=== PATIENT | female | born 1970 | race Caucasian/White ===

== ENCOUNTER 2017-06-22 11:53 | Outpatient (CLI) | payer OTHER ==
[2017-06-22 13:25] LABS: Hemoglobin 13.2 g/dL (12.0-16.0); Mean Corpuscular HGB CONC 34.2 g/dL (32.0-36.0); Mean Corpuscular Hemoglobin 34.2 pg (27.0-31.0); Mean Platelet Volume 7.9 fL (7.4-10.4); Platelet Count 209 thou/uL (130-400); RBC Distribution Width 10.5 % (11.5-14.5); Red Blood Cell (RBC) Count 3.85 mill/uL (4.20-5.40); White Blood Cell (WBC) Count 5.2 thou/uL (4.8-10.8)
== END 2017-06-22 11:54 | disposition home or self-care (01) ==
LOC: LABBT 11:53
PROVIDERS: ATTEND Student in an Organized Health Care Education/Training Program
DX: Z01.812 Encounter for preprocedural laboratory examination (principal); N92.1 Excessive and frequent menstruation with irregular cycle
CPT/HCPCS: 85027; 86850; 86900; 86901

== ENCOUNTER 2017-06-25 05:56 | Day surgery (SDC) | payer OTHER ==
[2017-06-22 12:21] VITALS: BMI 20.9
--- NOTE | 2017-06-25 01:02 | HP ---
DATE OF OPERATION: 06/25/2017 PREOPERATIVE DIAGNOSIS: Menometrorrhagia HISTORY OF PRESENT ILLNESS: This is a 47-year-old G0, presented with complaints of bleeding x3 weeks in duration. She also reported a history over the last several years. That occurred every 2 weeks and states the bleeding is extremely heavy and having increasing pain and the patient herself has nev er been sexually active and there is possibly a history in her mother, uterine cancer. The patient w as unable to be biopsied in the office secondary to patient discomfort. CURRENT MEDICATIONS: Aleve q. 12 hours p.r.n., Claritin 10 mg p.o. daily. PAST MEDICAL HISTORY: Denies. PAST SURGICAL HISTORY: Denies. OBSTETRIC HISTORY: G0. GYNECOLOGIC HISTORY: No abnormal Paps, no STDs. SOCIAL HISTORY: Negative x3. ALLERGIES: No known drug allergies. FAMILY HISTORY: Uterine cancer in her mother, prostate cancer in her father, breast cancer in her mo ther as well. PHYSICAL EXAMINATION: VITAL SIGNS: Blood pressure 120/78, pulse 70, respirations 18, weight 142, BMI of 21. GENERAL: No acute distress. CARDIAC: Regular rate and rhythm. LUNGS: Clear to auscultation bilaterally. ABDOMEN: Soft, nontender, nondistended. EXTREMITIES: No edema, cyanosis, or clubbing. PELVIC: Deferred to the OR. ASSESSMENT AND PLAN: This is a 47-year-old G0 with menometrorrhagia and family history of uterine ca ncer unable to be biopsied in the office. Disposition for in OR, hysteroscopy, D&C for further evalu ation of the uterine cavity. Ultrasound in May shows, uterus measuring 7.45 x 3.31 with a clinical athletic instructor ior fibroid measuring 2.18 x 3.21. Endometrium of 4 mm to the right and left ovary were normal. No free fluid was noted. Patient was discussed risk of surgery, which includes bleeding, infection, nanda rine perforation, damage to surrounding structure. The patient voiced understanding and wished to pr oceed. We will follow up with me in 2 weeks postoperative time.
[2017-06-25] MEDS ORDERED: Midazolam HCl 2 mg/2 ml Vial ONE (07:03)
[2017-06-25] MEDS ORDERED: Fentanyl 100 MCG/2 ML VIAL ONE (07:03)
[2017-06-25] MEDS ORDERED: Promethazine HCl 25 MG/ML VIAL ONE (07:19)
[2017-06-25] MEDS ORDERED: Scopolamine 1.5 mg/72 hour Patch ONE (07:19)
--- NOTE | 2017-06-25 08:45 | OP ---
DATE OF PROCEDURE: 06/25/2017 PREOPERATIVE DIAGNOSIS: Menometrorrhagia. POSTOPERATIVE DIAGNOSIS: Menometrorrhagia. PROCEDURE: Hysteroscopy, dilation and curettage. ATTENDING SURGEON: Anne Mobley M.D. HEAVY EQUIPMENT ENGINE MECHANIC: None. ANESTHESIA: General LMA. ESTIMATED BLOOD LOSS: 10 mL URINE OUTPUT: 50 mL, straight catheterization at the beginning. COMPLICATIONS: None. DRAINS: None. PATHOLOGY: Endometrial curettings. FINDINGS: Mobile 8 weeks' size uterus sounded to 8 cm. On hysteroscopic exam, normal uterine contou rs, secretory appearing endometrium, no endometrial masses or lesions. Bilateral tubal ostia were vi sualized. The endocervical canal was within normal limits and the fluid deficit for the case was 10 mL. OPERATIVE TECHNIQUE: The patient was taken to the operating room where general anesthesia was obtain ed without difficulty. The patient was prepped and draped in a sterile fashion in dorsal lithotomy p osition. Time out was performed and a speculum was placed in the vagina. The anterior lip of the ce rvix was grasped with a single tooth tenaculum. The cervix was then progressively dilated with Estevan dilators and then sounded to 8 cm. A 5 mm hysteroscope was assembled using normal saline as distenti on media and the hysteroscope was inserted into the uterine fundus and the above findings were noted and photo documentation was performed. The hysteroscope was then removed and sharp curettage was bijan en to all uterine barber and endometrial specimen was sent for pathology for final. The tenaculum was removed off the cervix and pressure was held on the tenaculum site. There was still slight oozing a nd Silver nitrate was used to cauterize these areas with hemostasis noted. There was no active bleed ing from the cervix was noted. The speculum was removed out of the vagina. There was a slight traum a to the hymenal ring and this was hemostatic with pressure and Silver nitrate. The patient tolerate d the procedure well. Sponge, lap, and needle counts were correct x2. The patient was taken to evaristo very room in stable condition.
[2017-06-25] MEDS ORDERED: Lidocaine 1% PF 5 ML VIAL ONE (13:54)
[2017-06-25] MEDS ORDERED: Ondansetron HCl/PF 4 MG/2 ML Vial ONE (13:54)
[2017-06-25] MEDS ORDERED: PHENYLEPHRINE-NS 100 MCG/ML 10 ML SYRINGE ONE (13:54)
[2017-06-25] MEDS ORDERED: Ketorolac Tromethamine 30 MG/ML VIAL ONE (13:54)
[2017-06-25] MEDS ORDERED: Propofol 200 MG/20 ML VIAL ONE (13:54)
[2017-06-25] MEDS ORDERED: Dexamethasone 20 MG/5 ML VIAL ONE (13:54)
== END 2017-06-25 11:40 | disposition home or self-care (01) ==
LOC: SDC 05:56
PROVIDERS: ATTEND Student in an Organized Health Care Education/Training Program
PROC: 0UDB7ZX Extraction of Endometrium, Via Natural or Artificial Opening, Diagnostic (ICD-10-PCS; principal; 2017-06-25)
PROC: 0UJD8ZZ Inspection of Uterus and Cervix, Via Natural or Artificial Opening Endoscopic (ICD-10-PCS; principal; 2017-06-25)
DX: N92.1 Excessive and frequent menstruation with irregular cycle (principal); Z79.818 Long term (current) use of other agents affecting estrogen receptors and estrogen levels; Z79.899 Other long term (current) drug therapy; Z98.890 Other specified postprocedural states; Z80.8 Family history of malignant neoplasm of other organs or systems; Z80.3 Family history of malignant neoplasm of breast
CPT/HCPCS: 88305; J1100; J1885; J2001; J2250; J2405; J2550; J2704; J3010